=== PATIENT | female | born 1980 | race Caucasian/White ===

== ENCOUNTER → 2017-06-21 | Outpatient (CLI) | payer OTHER | LOC: HPND 09:10 | PROVIDERS: ATTEND Obstetrics & Gynecology | DX: O09.523 Supervision of elderly multigravida, third trimester (principal); O34.219 Maternal care for unspecified type scar from previous cesarean delivery; O99.213 Obesity complicating pregnancy, third trimester; Z68.41 Body mass index [BMI] 40.0-44.9, adult; E66.01 Morbid (severe) obesity due to excess calories | CPT/HCPCS: 76811 ==

== ENCOUNTER → 2017-07-31 | Outpatient (CLI) | payer OTHER ==
[~2017-07-31] MED LIST: PREN1CAP PO
== END ==
LOC: HPND 08:22
PROVIDERS: ATTEND Obstetrics & Gynecology
DX: O09.523 Supervision of elderly multigravida, third trimester (principal); O99.213 Obesity complicating pregnancy, third trimester; E66.01 Morbid (severe) obesity due to excess calories; Z68.41 Body mass index [BMI] 40.0-44.9, adult
CPT/HCPCS: 76816

== ENCOUNTER 2017-09-06 08:40 | Inpatient (IN) | payer OTHER ==
[~2017-09-06] VITALS: Ht 162.6 cm; Wt 138.0 kg
[2017-09-06] VITALS (10 sets, daily range): BP systolic 103–125; BP diastolic 56–70; PULSE 77–97; RESP 16–20; TEMP 97.6–99.1; O2SAT 98–100
[2017-09-06] MEDS ORDERED: LACTATED RINGER'S 1000 ML INJ 1,000 ML IV ONE ×2 (09:28→12:00)
--- NOTE | 2017-09-06 09:29 | HHI.HP ---
HPI Chief Complaint Scheduled Date Seen: Sep 06, 2017 Travel History International Travel<30 Days: No Contact w/Intl Traveler<30Days: No History of Present Illness HPI Ms. Rashid is a 36 y/o at 39/0 weeks gestation presenting for her repeat C- section. Patient denies any complications during . Per chart review, patient has [facility], however has not been seen since 05/30/17. Patient does state that she was seen once in July. She refused multiple studies during her . Patient also has a history of opiate use not during . Most recent US completed on 08/24/17 with OB diagnostics recommending pre-eclampsia work up due to elevated BP, however patient did not comply with recommendations. Patient endorses narcotic use with multiple oral substances throughout . She last used 4 tabs of 5mg Percocet yesterday. She also endorses marijuana use unknowingly throughout the . Otherwise she has no complaints and denies any fevers, chills, SOB, chest pain, NVD, ABD pain, or calf tenderness. Weeks Gestation: 39 Para: 1 : 2 History Past Medical History Medical History: Denies Significant Hx Obstetric History Obstetric History -Full term uncomplicated Past Surgical History Narrative Surgical Appendectomy Family History Narrative Family History No FMHx reported Social History Narrative Social History Patient does not report any alcohol history Patient has been smoking 1/2 ppd during Patient has been using oral narcotics throughout that are not prescribed. Last used 4 tabs of 5mg Percocet yesterday. Also endorses marijuana use during . Allergies-Medications (Allergen,Severity, Reaction): Coded Allergies: No Known Allergies (Verified Adverse Reaction, Unknown, 08/02/17) Home Meds Active Scripts Vit W/ Fe Polysacch C (Vitafol Ultra 29-0.6-0.4-200 mg) 29 Mg Iron-1 Mg -200 Mg Cap, 1 TAB PO DAILY, #30 BOTTLE 11 Refills Prov:Loan Thorne 08/02/17 Review of Systems Except as stated in HPI: all other systems reviewed are Neg (Per HPI) Physical Exam Narrative GENERAL: Obese female laying in bed appears uncomfortable, but in NAD. SKIN: Warm and dry. HEAD: Normocephalic and atraumatic. EYES: No scleral icterus. No injection or drainage. ENT: No nasal drainage noted. Mucous membranes pink. Airway patent. NECK: Supple, trachea midline. No JVD. CARDIOVASCULAR: Regular rate and rhythm without murmurs, gallops, or rubs. RESPIRATORY: Breath sounds equal bilaterally. No accessory muscle use. BREASTS: Bilateral exam showed no masses , no retractions, no nipple discharge. ABDOMEN/GI: Abdomen soft, non-tender, bowel sounds present, no rebound, no guarding Gravid to 39 weeks size FHT's: Category: 1 Baseline: 140s Reactive: Positive Variability: Moderate Decels: None EXTREMITIES: No cyanosis or edema. Patient with mild tremor. BACK: Nontender without obvious deformity. No CVA tenderness. NEUROLOGICAL: Awake and alert. Motor and sensory grossly within normal limits. Five out of 5 muscle strength in all muscle groups. Normal speech. Caprini VTE Risk Assessment Caprini VTE Risk Assessment: Mod/High Risk (score >= 2) Caprini Risk Assessment Model Point Value = 1 Point Value = 2 Point Value = 3 Point Value = 5 Age 41-60 Minor surgery BMI > 25 kg/m2 Swollen legs Varicose veins or History of unexplained or recurrent spontaneous Oral contraceptives or hormone replacement Sepsis (< 1 month) Serious lung disease, including pneumonia (< 1 month) Abnormal pulmonary function Acute myocardial infarction Congestive heart failure (< 1 month) History of inflammatory bowel disease Medical patient at bed rest Age 61-74 Arthroscopic surgery Major open surgery (> 45 min) Laparoscopic surgery (> 45 min) Malignancy Confined to bed (> 72 hours) Immobilizing plaster cast Central venous access Age >= 75 History of VTE Family history of VTE Factor V Leiden Prothrombin 44004K Lupus anticoagulant Anticardiolipin antibodies Elevated serum homocysteine Heparin-induced thrombocytopenia Other congenital or acquired thrombophilia Stroke (< 1 month) Elective arthroplasty Hip, pelvis, or leg fracture Acute spinal cord injury (< 1 month) Prophylaxis Regimen Total Risk Factor Score Risk Level Prophylaxis Regimen 0-1 Low Early ambulation 2 Moderate Order ONE of the following: *Sequential Compression Device (SCD) *Heparin 5000 units SQ BID 3-4 Higher Order ONE of the following medications: *Heparin 5000 units SQ TID *Enoxaparin/Lovenox 40 mg SQ daily (WT < 150 kg, CrCl > 30 mL/min) *Enoxaparin/Lovenox 30 mg SQ daily (WT < 150 kg, CrCl > 10-29 mL/min) *Enoxaparin/Lovenox 30 mg SQ BID (WT < 150 kg, CrCl > 30 mL/min) AND/OR *Sequential Compression Device (SCD) 5 or more Highest Order ONE of the following medications: *Heparin 5000 units SQ TID (Preferred with Epidurals) *Enoxaparin/Lovenox 40 mg SQ daily (WT < 150 kg, CrCl > 30 mL/min) *Enoxaparin/Lovenox 30 mg SQ daily (WT < 150 kg, CrCl > 10-29 mL/min) *Enoxaparin/Lovenox 30 mg SQ BID (WT < 150 kg, CrCl > 30 mL/min) AND *Sequential Compression Device (SCD) Data Data Vital Signs Reviewed: Yes Orders Orders Admit To Inpatient (09/06/17 ) Code Status (09/06/17 09:28) Vital Signs (Adult) .ON ADMISSION (09/06/17 09:28) Activity Oob Ad Cassia (09/06/17 09:28) Heart (09/06/17 09:28) Urinary Catheter Management JAS.Q8H (09/06/17 09:28) ^ Preps (09/06/17 09:28) Scd / Dru / Foot Pump JAS.QSHIFT (09/06/17 09:28) ^ Ultrasound For Locatio (09/06/17 09:28) Diet Npo (09/06/17 Breakfast) Lactated Ringer's 1000 Ml Inj (Lr 1000 M (09/06/17 09:28) Lactated Ringer's 1000 Ml Inj (Lr 1000 M (09/06/17 09:58) Cefazolin 2 Gm Premix (Ancef 2 Gm Premix (09/06/17 10:30) Citric Acid-Sodium Citrate Liq (Bicitra (09/06/17 11:00) Type And Screen (09/06/17 09:28) Complete Blood Count With Diff (09/06/17 09:28) Urinalysis - C+S If Indicated (09/06/17 09:28) Drug Screen, Random Urine (09/06/17 09:28) Inpatient Certification (09/06/17 ) Specimen To Be Collected PRN (09/06/17 09:28) Specimen To Be Collected PRN (09/06/17 09:28) Assessment/Plan Problem List: (1) 39 weeks gestation of ICD Codes: Z3A.39 - 39 weeks gestation of Status: Acute Assessment and Plan Ms. Rashid is a 36 y/o presenting at 39w for her repeat 1. IUP at 39 weeks gestation -Continue routine antepartum care -Patient has been NPO since midnight - orders placed -FHT category 1, reassuring 2. History of Drug Abuse -Continue to monitor; High risk for withdrawal; Team to make neonatology aware -Last used a total of 20mg of Percocet 09/05/17 -UDS ordered DW: Dr. Butcher Discharge Planning Pending clinical course Isael Edward MD R2 Sep 06, 2017 09:29
[2017-09-06] MEDS ORDERED: LACTATED RINGER'S 1000 ML INJ 1,000 ML IV SCH ×2 (09:58→17:33)
[2017-09-06] MEDS ORDERED: ACETAMINOPHEN 1000 MG/100 ML 100 ML IV ONE (10:24)
[2017-09-06] MEDS ORDERED: MIDAZOLAM HCL 2 MG/2 ML VIAL ONE (10:24)
[2017-09-06] MEDS ORDERED: MORPHINE SULFATE PF 5 MG/10 ML VIAL ONE (10:24)
[2017-09-06] MEDS ORDERED: ceFAZolin 2 GM PREMIX 50 ML IV SCH (10:30)
[2017-09-06 10:54] LABS: BASOPHIL % 0.4 % (0.0-2.0); EOSINOPHIL # 0.1 TH/MM3 (0-0.4); EOSINOPHIL % 0.8 % (0.0-4.0); HEMATOCRIT 34.6 % (35.0-46.0); HEMOGLOBIN 11.8 GM/DL (11.6-15.3); LYMPH % 17.6 % (9.0-44.0); LYMPHOCYTE # 1.7 TH/MM3 (1.0-4.8); MEAN CELL VOLUME 86.2 FL (80.0-100.0); MEAN CORPUSCULAR HEMOGLOBIN 29.3 PG (27.0-34.0); MEAN PLATELET VOLUME 8.5 FL (7.0-11.0); MONOCYTE # 0.7 TH/MM3 (0-0.9); NEUT % 74.2 % (16.0-70.0); PLATELET COUNT 360 TH/MM3 (150-450); RED BLOOD COUNT 4.01 MIL/MM3 (4.00-5.30); RED CELL DISTRIBUTION WIDTH 14.7 % (11.6-17.2); WHITE BLOOD COUNT 9.4 TH/MM3 (4.0-11.0)
[2017-09-06] MEDS ORDERED: CITRIC ACID-SODIUM CITRATE LIQ 30 ML UDC PO SCH (11:00)
[2017-09-06 11:02] LABS: BACTERIA, URINE MANY /hpf; BILIRUBIN, URINE NEG (NEG); BLOOD, URINE NEG (NEG); GLUCOSE,URINE NEG (NEG); KETONE, URINE NEG (NEG); MUCUS URINE FEW /lpf (OCC); NITRITE,URINE NEG (NEG); PH, URINE 6.5 (5.0-8.5); SQUAMOUS EPITHELIAL CELL URINE 16 /hpf (0-5); URINE COLOR YELLOW (YELLW/STRAW); URINE LEUKOCYTE ESTERASE SMALL (NEG)
[2017-09-06] MEDS ORDERED: EPIDURAL-DO NOT ADMINISTER ANTICOAGULANTS PRN (11:20)
[2017-09-06] MEDS ORDERED: EPIDURAL-DIPHENHYDRAMINE HCL 50 MG CAP PO PRN (11:20)
[2017-09-06] MEDS ORDERED: EPIDURAL-DIPHENHYDRAMINE HCL 50 MG/ML VIAL IV PUSH PRN (11:20)
[2017-09-06] MEDS ORDERED: EPIDURAL-NALOXONE HCL 0.4 MG/ML AMP IV PUSH PRN (11:20)
[2017-09-06] MEDS ORDERED: EPIDURAL-NO SYSTEMIC NARCOTICS PRN (11:20)
[2017-09-06] MEDS ORDERED: ePHEDrine/NS 25 MG/5 ML SYRINGE ONE (11:35)
[2017-09-06] MEDS ORDERED: OXYTOCIN 10 UNIT/ML AMP IV ONE (12:00)
[2017-09-06] MEDS ORDERED: ePHEDrine/NS 25 MG/5 ML SYRINGE IV ONE (12:00)
[2017-09-06] MEDS ORDERED: ONDANSETRON HCL 4 MG/2 ML VIAL IV ONE (12:00)
[2017-09-06] MEDS ORDERED: DEXAMETHASONE SOD PHOS 4 MG/ML VIAL IV ONE (12:00)
--- NOTE | 2017-09-06 12:34 | PD.OP ---
Operative Report Date of Surgery: Sep 06, 2017 Preoperative Diagnosis: Postoperative Diagnosis: Procedure: Repeat Low Transverse Section Anesthesia: Spinal Surgeon: Brooke Butcher MD Willow Analyst(s): Margy Meyers Resident Surgeon: Lana Ellison R3 Operation and Findings: PREOPERATIVE DIAGNOSIS 1. 39 weeks gestation 2. Repeat Section. 3. Bilateral Tubal Ligation 4. Narcotic abuse during POSTOPERATIVE DIAGNOSIS 1. 39 weeks gestation. 2. Repeat Section. 3. Bilateral Tubal Ligation 4. Narcotic abuse during . PROCEDURE Repeat low transverse section. SURGEON Dr. Brooke Butcher and Dr. Lana Ellison R3 FINDINGS A normal viable female infant weight 3250g and Apgars 8/9. Normal fallopian tubes, ovaries, and uterus. COMPLICATIONS None COUNTS Correct ESTIMATED BLOOD LOSS 750 cc FLUIDS Crystalloids CONDITION The patient tolerated the procedure well and went to the PACU for recovery in good condition. PROCEDURE IN DETAIL The patient was taken to the operating room, identified by name band and verbally. The time out was done and patient was prepped and draped in the usual sterile fashion for section. A Pfannenstiel incision was made at the site of the previous incision then carried down to the fascia. The fascia was taken off the rectus muscle by blunt and sharp dissection. The rectus muscles were spread bluntly and the peritoneum entered under direct vision without difficulty. The incision was extended and adhesions were taken down. An Vadim retractor was placed and a bladder flap was created. The uterus was incised transversely along the lower uterine segment. Once the uterine cavity was entered, clear fluid was noted. The head was grasped and fundal pressure was applied followed by uncomplicated delivery of the head. A nuchal cord x 1 was reduced and the rest of the body was delivered without difficulty. Cord clamping was delayed for 45 seconds before the cord was doubly clamped and cut and the baby was handed to the baby nurse. The cord blood was obtained and the placenta was delivered manually. The uterus was curettaged with a wet lap. The uterine incision was repaired with 1.0 chromic in a running locking fashion. Hemostasis was excellent. The tubal ligation was then performed. The left fallopian tube was grasped and elevated with a Galen clamp. A hemostat was passed through the mesosalpinx and two catgut sutures were pulled through the window made in the mesosalpinx. The tube was tied fore and aft. The intervening segment of tube was removed and sent to pathology. The same was done on the opposite side without difficulty. Once this had been accomplished, all incisions were carefully inspected. The gutters were cleaned of blood and debris. The muscle was closed in an interrupted fashion with a 1.0 chromic. The fascia was repaired with 1.0 PDS in a running fashion bilaterally. The subcuticular layer was repaired with plain gut. The skin was then repaired with a 3-0 Monocryl in a subcuticular fashion. The wound was sterilely dressed with a Molnlycke dressing. The patient tolerated the procedure well and went to PACU for recovery in good condition. Lana Ellison MD, R3 Sep 06, 2017 12:34
[2017-09-06] MEDS ORDERED: oxyCODONE/ACETAMINOPHEN 5 MG/325 MG TAB PO PRN (12:45)
[2017-09-06] MEDS ORDERED: ZOLPIDEM TARTRATE 5 MG TAB PO PRN (12:45)
[2017-09-06] MEDS ORDERED: SIMETHICONE 80 MG CHEWABLE TAB PO PRN (12:45)
[2017-09-06] MEDS ORDERED: ONDANSETRON HCL 4 MG/2 ML VIAL IV PUSH PRN (12:45)
[2017-09-06] MEDS ORDERED: KETOROLAC TROMETHAMINE 60 MG/2 ML (IM) VIAL IM PRN ×2 (12:45)
[2017-09-06] MEDS ORDERED: SODIUM CHLORIDE 0.9% FLUSH 10 ML FLUSH IV FLUSH PRN (12:45)
[2017-09-06] MEDS ORDERED: ACETAMINOPHEN 325 MG TAB PO PRN (12:45)
[2017-09-06] MEDS ORDERED: OXYTOCIN 30 UNITS-500ML PREMIX 500 ML IV ONE (12:45)
[2017-09-06] MEDS ORDERED: HYDROmorphone HCL PF 2 MG/ML VIAL ONE (13:16)
[2017-09-06] MEDS ORDERED: OXYTOCIN 30 UNITS-500ML PREMIX 500 ML ONE (13:17)
[2017-09-06] MEDS: HYDROmorphone HCL PF 2 MG/ML VIAL IV PRN ×4 (13:22→13:41)
[2017-09-06] MEDS ORDERED: RESP: ALBUTEROL 2.5 MG/3 ML NEB (PRN) NEB (16:00)
[2017-09-06] MEDS: guaiFENesin E.R. 600 MG TAB PO SCH (20:43)
[2017-09-06] MEDS: oxyCODONE/ACETAMINOPHEN 5 MG/325 MG TAB PO PRN (20:45)
[2017-09-06] MEDS ORDERED: SODIUM CHLORIDE 0.9% FLUSH 10 ML FLUSH IV FLUSH SCH (21:00)
[2017-09-06] MEDS ORDERED: OXYTOCIN 30 UNITS-500ML PREMIX 500 ML IV PRN (22:45)
[2017-09-07 00:30] VITALS: BP 111/68; PULSE 86; RESP 18; TEMP 98.3
[2017-09-07] MEDS: IBUPROFEN 600 MG TAB PO PRN ×4 (00:31→23:57)
[2017-09-07] MEDS: oxyCODONE/ACETAMINOPHEN 5 MG/325 MG TAB PO PRN ×6 (00:31→21:56)
[2017-09-07] MEDS: DOCUSATE SODIUM 50 MG/SENNA 8.6 MG TAB PO PRN (04:28)
[2017-09-07 04:30] VITALS: BP 111/67; PULSE 81; RESP 20; TEMP 97.7
[2017-09-07 05:57] LABS: AUTOMATED NEUTROPHIL # 6.9 TH/MM3 (1.8-7.7); BASOPHIL % 0.4 % (0.0-2.0); EOSINOPHIL # 0.1 TH/MM3 (0-0.4); EOSINOPHIL % 0.7 % (0.0-4.0); HEMATOCRIT 30.5 % (35.0-46.0); HEMOGLOBIN 10.3 GM/DL (11.6-15.3); LYMPH % 16.2 % (9.0-44.0); LYMPHOCYTE # 1.5 TH/MM3 (1.0-4.8); MEAN CELL VOLUME 86.7 FL (80.0-100.0); MEAN CORPUSCULAR HEMOGLOBIN 29.2 PG (27.0-34.0); MEAN CORPUSCULAR HGB CONC 33.7 % (32.0-36.0); MONO % 8.6 % (0.0-8.0); MONOCYTE # 0.8 TH/MM3 (0-0.9); NEUT % 74.1 % (16.0-70.0); PLATELET COUNT 326 TH/MM3 (150-450); RED BLOOD COUNT 3.52 MIL/MM3 (4.00-5.30); RED CELL DISTRIBUTION WIDTH 14.9 % (11.6-17.2); WHITE BLOOD COUNT 9.4 TH/MM3 (4.0-11.0)
--- NOTE | 2017-09-07 07:52 | HHI.OB ---
Subjective Post Operative Day: 1 Remarks Pt seen and examined this morning. Postoperative day # 1 AFVSS overnight. Incision nondraining. Decreased lochia. Denies dysuria. No breast tenderness. She is feeding the baby via bottle. Appetite good. No nausea or vomiting. Patient has not yet had a bowel movement, but does endorse bowel gas. Ambulating well. Denies calf pain or shortness of breath. Otherwise, she is doing well this morning and has no other concerns. Objective Vitals/I&O Vital Signs Date Time Temp Pulse Resp B/P (MAP) Pulse Ox O2 Delivery O2 Flow Rate FiO2 09/07/17 04:30 97.7 81 20 111/67 (82) 09/07/17 00:30 98.3 86 18 111/68 (82) 09/06/17 20:00 98.4 09/06/17 20:00 90 18 119/66 (83) 98 09/06/17 17:45 99.1 88 18 115/65 (82) 09/06/17 14:26 97.8 77 20 123/69 (87) 09/06/17 13:30 88 18 115/60 (78) 98 09/06/17 13:28 97.6 09/06/17 13:15 113/56 (75) 09/06/17 13:15 80 18 100 09/06/17 13:00 100 09/06/17 13:00 91 16 116/56 (76) 09/06/17 12:45 97.7 09/06/17 12:45 97 18 103/59 (74) 100 09/06/17 09:00 98.0 09/06/17 08:57 97 125/70 (88) Result Diagram: 09/07/17 0520 Objective Remarks GENERAL: Well-nourished, well-developed patient. CARDIOVASCULAR: Regular rate and rhythm without murmurs, gallops, or rubs. RESPIRATORY: Breath sounds equal bilaterally. No accessory muscle use. ABDOMEN/GI: Abdomen soft, non-tender, bowel sounds present. Incision: Clean, dry and intact. Fundus: Firm, non-tender at umbilicus. GENITOURINARY: Light to moderate bleeding. EXTREMITIES: No cyanosis, non-tender, without signs of DVT. Patient has mild edema bilateral lower extremities that is nonpitting, stable from prior exam. Medications and IVs Current Medications Medications (Trade) Dose Ordered Sig/Kacie Route Start Time Stop Time Status Last Admin Lactated Ringer's 1,000 ml @ 100 mls/hr Q10H IV 09/06/17 17:33 09/07/17 13:32 Oxytocin 500 ml @ 100 mls/hr UNSCH X1 PRN IV 09/06/17 22:45 09/07/17 22:44 (NS Flush) 2 ml BID IV FLUSH 09/06/17 21:00 (NS Flush) 2 ml UNSCH PRN IV FLUSH 09/06/17 12:45 (Mylicon Chew) 80 mg QID PRN PO 09/06/17 12:45 (Tylenol) 650 mg Q6H PRN PO 09/06/17 12:45 (Motrin) 600 mg Q6H PRN PO 09/06/17 12:45 09/07/17 00:31 (Toradol Inj) 60 mg UNSCH X1 PRN IM 09/06/17 12:45 09/07/17 12:44 09/06/17 16:39 (Toradol Inj) 30 mg Q6H PRN IM 09/06/17 12:45 09/07/17 12:44 (Percocet 5-325 Mg) 1 tab Q4H PRN PO 09/06/17 12:45 (Percocet 5-325 Mg) 2 tab Q4H PRN PO 09/06/17 12:45 09/07/17 04:27 (Cee-Colace) 2 tab Q12H PRN PO 09/06/17 12:45 09/07/17 04:28 (Ambien) 5 mg HS PRN PO 09/06/17 12:45 (M-M-R Ii Inj) 0.5 ml ONCE ONCE SQ 09/07/17 16:00 09/07/17 16:01 (Boostrix Inj) 0.5 ml ONCE ONCE IM 09/07/17 16:00 09/07/17 16:01 (Zofran Inj) 4 mg Q6H PRN IV PUSH 09/06/17 12:45 Miscellaneous Information NO SYSTEMIC NARCOTICS TO BE GIVEN FO... UNSCH PRN .XX 09/06/17 11:20 09/07/17 11:19 (Narcan Inj) 0.4 mg UNSCH PRN IV PUSH 09/06/17 11:20 09/07/17 11:19 (Benadryl Inj) 25 mg Q6H PRN IV PUSH 09/06/17 11:20 09/07/17 11:19 (Benadryl) 50 mg Q6H PRN PO 09/06/17 11:20 09/07/17 11:19 Miscellaneous Information ALL NURSING DEPARTMENTS UNSCH PRN .XX 09/06/17 11:20 09/07/17 11:19 (Mucinex Er) 600 mg BID PO 09/06/17 21:00 09/06/17 20:43 (Albuterol Neb) 2.5 mg Q4HR NEB PRN NEB 09/06/17 16:00 Assessment/Plan Problem List: (1) 39 weeks gestation of ICD Codes: Z3A.39 - 39 weeks gestation of Status: Acute (2) Single delivery by ICD Codes: O82 - Encounter for delivery without indication Status: Acute Assessment and Plan 36 y/o female who is postoperative day # 1 s/p . -Continue routine care. -Postoperative H/H 10.3/30.5 -Percocet and Motrin PRN pain. -Encouraged OOB. Advised pelvic rest for 6 wks. and will need follow-up appointment in 1-2 weeks for incision check. -Patient with history of drug abuse continue to monitor; High risk for withdrawal, Last used a total of 20mg of Percocet 09/05/17 -UDS positive for opiates, otherwise negative -Patient is status post bilateral tubal ligation, no need for continued control. -Anticipate discharge in 1-2 days pending clinical course. kenzie Butcher MD Discharge Planning In 1-2 days pending clinical course Isael Edward MD R2 Sep 07, 2017 07:52
[2017-09-07 08:00] VITALS: BP 109/69; PULSE 80; RESP 22; TEMP 97.9
[2017-09-07] MEDS: guaiFENesin E.R. 600 MG TAB PO SCH ×2 (09:20→22:18)
[2017-09-07] MEDS ORDERED: DIPHTH/TETANUS/ACEL PERTUSSIS (BOOSTER) 0.5 ML VIAL/PFS IM ONE (16:00)
[2017-09-07] MEDS ORDERED: MEASLES, MUMPS, RUBELLA VACCINE 0.5 ML VIAL SQ ONE (16:00)
[2017-09-07 19:00] VITALS: BP 121/69; PULSE 76; RESP 18; TEMP 98
[2017-09-08] MEDS: oxyCODONE/ACETAMINOPHEN 5 MG/325 MG TAB PO PRN ×5 (04:12→20:52)
[2017-09-08] MEDS: IBUPROFEN 600 MG TAB PO PRN ×3 (06:34→20:52)
[2017-09-08 08:00] VITALS: BP 110/74; PULSE 73; RESP 18; TEMP 98.1
--- NOTE | 2017-09-08 08:15 | HHI.OB ---
Subjective Post Operative Day: 2 Remarks Pt seen and examined this morning. Postoperative day # 2 AFVSS overnight. Incision nondraining. Decreased lochia. Denies dysuria. No breast tenderness. She is feeding the baby via bottle. Appetite good. No nausea or vomiting. Patient endorses having a bowel movement and continues to pass bowel gas. Ambulating well. Denies calf pain or shortness of breath. Otherwise, she is doing well this morning and has no other concerns. Objective Vitals/I&O Vital Signs Date Time Temp Pulse Resp B/P (MAP) Pulse Ox O2 Delivery O2 Flow Rate FiO2 09/07/17 19:00 76 121/69 (86) 09/07/17 19:00 98.0 18 Result Diagram: 09/07/17 0520 Objective Remarks GENERAL: Well-nourished, well-developed patient. CARDIOVASCULAR: Regular rate and rhythm without murmurs, gallops, or rubs. RESPIRATORY: Breath sounds equal bilaterally. No accessory muscle use. ABDOMEN/GI: Abdomen soft, non-tender, bowel sounds present. Incision: Clean, dry and intact. Fundus: Firm, non-tender at umbilicus. GENITOURINARY: Light to moderate bleeding. EXTREMITIES: No cyanosis, non-tender, without signs of DVT. Patient has mild edema bilateral lower extremities that is nonpitting, stable from prior exam. Medications and IVs Current Medications Medications (Trade) Dose Ordered Sig/Kacie Route Start Time Stop Time Status Last Admin (NS Flush) 2 ml BID IV FLUSH 09/06/17 21:00 (NS Flush) 2 ml UNSCH PRN IV FLUSH 09/06/17 12:45 (Mylicon Chew) 80 mg QID PRN PO 09/06/17 12:45 (Tylenol) 650 mg Q6H PRN PO 09/06/17 12:45 (Motrin) 600 mg Q6H PRN PO 09/06/17 12:45 09/08/17 06:34 (Percocet 5-325 Mg) 1 tab Q4H PRN PO 09/06/17 12:45 (Percocet 5-325 Mg) 2 tab Q4H PRN PO 09/06/17 12:45 09/08/17 04:12 (Cee-Colace) 2 tab Q12H PRN PO 2/21/18 12:45 09/07/17 04:28 (Ambien) 5 mg HS PRN PO 09/06/17 12:45 (Zofran Inj) 4 mg Q6H PRN IV PUSH 09/06/17 12:45 (Mucinex Er) 600 mg BID PO 09/06/17 21:00 09/07/17 22:18 (Albuterol Neb) 2.5 mg Q4HR NEB PRN NEB 09/06/17 16:00 Assessment/Plan Problem List: (1) 39 weeks gestation of ICD Codes: Z3A.39 - 39 weeks gestation of Status: Acute (2) Single delivery by ICD Codes: O82 - Encounter for delivery without indication Status: Acute Assessment and Plan 36 y/o female who is postoperative day #2 s/p . -Continue routine care. -Postoperative H/H 10.3/30.5 -Percocet and Motrin PRN pain. -Encouraged OOB. Advised pelvic rest for 6 wks. and will need follow-up appointment in 1-2 weeks for incision check. -Patient with history of drug abuse continue to monitor; High risk for withdrawal, Last used a total of 20mg of Percocet 09/05/17 -UDS positive for opiates, otherwise negative -Patient is status post bilateral tubal ligation, no need for continued control -Anticipate discharge tomorrow pending clinical course. kenzie Hair MD Discharge Planning Tomorrow pending clinical course. Isael Edward MD R2 Sep 08, 2017 08:15
[2017-09-08] MEDS: guaiFENesin E.R. 600 MG TAB PO SCH ×2 (08:32→20:52)
[2017-09-08] MEDS: DOCUSATE SODIUM 50 MG/SENNA 8.6 MG TAB PO PRN (16:55)
[2017-09-08 21:00] VITALS: BP 116/71; PULSE 83; RESP 18; TEMP 99.3
[2017-09-09] MEDS ORDERED: PERI PO (00:12)
[2017-09-09] MEDS ORDERED: IBUP-232 PO (00:12)
[2017-09-09] MEDS ORDERED: OXYC1TAB63 PO (00:12)
--- NOTE | 2017-09-09 00:12 | HHI.DCPOC ---
Discharge Care Plan Diagnosis: (1) Single delivery by Report Symptoms to Your Doctor -Temperature above 100.5 degrees -Redness, of incision or excessive or foul smelling drainage -Unusual pain or calf pain -Increased vaginal bleeding -Painful or difficulty urinating -Feelings of extreme sadness or anxiety after 2 weeks Goals to Promote Your Health * To prevent worsening of your condition and complications * To maintain your health at the optimal level Directions to Meet Your Goals Take your medications as prescribed Follow your dietary instruction Follow activity as directed Ensure plenty of rest for recovery Drink fluids for hydration Keep your appointments as scheduled Take your immunizations and boosters as scheduled If your symptoms worsen call your PCP, if no PCP go to Urgent Care Center or Emergency Room Smoking is Dangerous to Your Health. Avoid second hand smoke Call the 24-hour crisis hotline for domestic abuse at Isael Edward MD R2 Sep 09, 2017 00:12
[2017-09-09] MEDS: IBUPROFEN 600 MG TAB PO PRN ×2 (02:42→08:57)
[2017-09-09] MEDS: oxyCODONE/ACETAMINOPHEN 5 MG/325 MG TAB PO PRN (02:42)
--- NOTE | 2017-09-09 07:20 | HHI.OB ---
Subjective Post Operative Day: 3 Objective Vitals/I&O Vital Signs Date Time Temp Pulse Resp B/P (MAP) Pulse Ox O2 Delivery O2 Flow Rate FiO2 09/08/17 21:00 99.3 83 18 116/71 (86) 09/08/17 08:00 98.1 73 18 110/74 (86) Result Diagram: 09/07/17 0520 Objective Remarks GENERAL: Well-nourished, well-developed patient. CARDIOVASCULAR: Regular rate and rhythm without murmurs, gallops, or rubs. RESPIRATORY: Breath sounds equal bilaterally. No accessory muscle use. ABDOMEN/GI: Abdomen soft, non-tender, bowel sounds present. Incision: Clean, dry and intact. Fundus: Firm, non-tender at umbilicus. GENITOURINARY: Light to moderate bleeding. EXTREMITIES: No cyanosis, non-tender, without signs of DVT. Patient has mild edema bilateral lower extremities that is nonpitting, stable from prior exam. Medications and IVs Current Medications Medications (Trade) Dose Ordered Sig/Kacie Route Start Time Stop Time Status Last Admin (NS Flush) 2 ml BID IV FLUSH 09/06/17 21:00 (NS Flush) 2 ml UNSCH PRN IV FLUSH 09/06/17 12:45 (Mylicon Chew) 80 mg QID PRN PO 09/06/17 12:45 (Tylenol) 650 mg Q6H PRN PO 09/06/17 12:45 (Motrin) 600 mg Q6H PRN PO 09/06/17 12:45 09/09/17 02:42 (Percocet 5-325 Mg) 1 tab Q4H PRN PO 09/06/17 12:45 (Percocet 5-325 Mg) 2 tab Q4H PRN PO 09/06/17 12:45 09/09/17 02:42 (Cee-Colace) 2 tab Q12H PRN PO 09/06/17 12:45 09/08/17 16:55 (Ambien) 5 mg HS PRN PO 09/06/17 12:45 (Zofran Inj) 4 mg Q6H PRN IV PUSH 09/06/17 12:45 (Mucinex Er) 600 mg BID PO 09/06/17 21:00 09/08/17 20:52 (Albuterol Neb) 2.5 mg Q4HR NEB PRN NEB 09/06/17 16:00 Assessment/Plan Problem List: (1) 39 weeks gestation of ICD Codes: Z3A.39 - 39 weeks gestation of Status: Acute (2) Single delivery by ICD Codes: O82 - Encounter for delivery without indication Status: Acute Assessment and Plan 36 y/o female who is postoperative day # 1 s/p . -Continue routine care. -Postoperative H/H 10.3/30.5 -Percocet and Motrin PRN pain. -Encouraged OOB. Advised pelvic rest for 6 wks. and will need follow-up appointment in 1-2 weeks for incision check. -Patient with history of drug abuse continue to monitor; High risk for withdrawal, Last used a total of 20mg of Percocet 09/05/17 -UDS positive for opiates, otherwise negative -Patient is status post bilateral tubal ligation, no need for continued control. -Anticipate discharge in 1-2 days pending clinical course. kenzie Butcher MD Discharge Planning Tomorrow pending clinical course. Isael Edward MD R2 Sep 09, 2017 07:20
[2017-09-09 08:00] VITALS: BP 139/79; PULSE 113; RESP 18; TEMP 98.1
--- NOTE | 2017-09-09 08:18 | HHI.OB ---
Subjective Post Operative Day: 3 Remarks Pt seen and examined this morning. Postoperative day # 3 AFVSS overnight. Incision not draining. Decreased lochia. Denies dysuria. No breast tenderness. She is feeding the baby via bottle. Appetite good. No nausea or vomiting. Patient endorses having a bowel movement and continues to pass bowel gas. Ambulating well. Denies calf pain or shortness of breath. Otherwise, she is doing well this morning and has no other concerns. Objective Vitals/I&O Vital Signs Date Time Temp Pulse Resp B/P (MAP) Pulse Ox O2 Delivery O2 Flow Rate FiO2 09/08/17 21:00 99.3 83 18 116/71 (86) Result Diagram: 09/07/17 05 Objective Remarks GENERAL: Well-nourished, well-developed patient. CARDIOVASCULAR: Regular rate and rhythm without murmurs, gallops, or rubs. RESPIRATORY: Clear to auscultation bilaterally with no CRW. No increased work of breathing. ABDOMEN/GI: Abdomen soft, non-tender, bowel sounds present. Incision: Clean, dry and intact. Fundus: Firm, non-tender at umbilicus. GENITOURINARY: Light to moderate bleeding. EXTREMITIES: No cyanosis, non-tender, without signs of DVT. Patient has bilateral LE edema that is nonpitting, stable from prior exam. Medications and IVs Current Medications Medications (Trade) Dose Ordered Sig/Kacie Route Start Time Stop Time Status Last Admin (NS Flush) 2 ml BID IV FLUSH 09/06/17 21:00 (NS Flush) 2 ml UNSCH PRN IV FLUSH 09/06/17 12:45 (Mylicon Chew) 80 mg QID PRN PO 09/06/17 12:45 (Tylenol) 650 mg Q6H PRN PO 09/06/17 12:45 (Motrin) 600 mg Q6H PRN PO 09/06/17 12:45 09/09/17 02:42 (Percocet 5-325 Mg) 1 tab Q4H PRN PO 09/06/17 12:45 (Percocet 5-325 Mg) 2 tab Q4H PRN PO 09/06/17 12:45 09/09/17 02:42 (Cee-Colace) 2 tab Q12H PRN PO 09/06/17 12:45 09/08/17 16:55 (Ambien) 5 mg HS PRN PO 09/06/17 12:45 (Zofran Inj) 4 mg Q6H PRN IV PUSH 09/06/17 12:45 (Mucinex Er) 600 mg BID PO 09/06/17 21:00 09/08/17 20:52 (Albuterol Neb) 2.5 mg Q4HR NEB PRN NEB 09/06/17 16:00 Assessment/Plan Problem List: (1) 39 weeks gestation of ICD Codes: Z3A.39 - 39 weeks gestation of Status: Acute (2) Single delivery by ICD Codes: O82 - Encounter for delivery without indication Status: Acute Assessment and Plan 36 y/o female who is postoperative day # 3 s/p . -Continue routine care. -Postoperative H/H 10.3/30.5 -Encourage patient to ambulate to improve bilateral lower extremity edema as well as keep lower extremities elevated when lying flat. No signs/symptoms of pulmonary edema at this time. -Percocet and Motrin PRN pain. -Encouraged OOB. Advised pelvic rest for 6 wks. and will need follow-up appointment in 1-2 weeks for incision check. -Patient with history of drug abuse continue to monitor; High risk for withdrawal, Last used a total of 20mg of Percocet 09/05/17 -UDS positive for opiates, otherwise negative -Patient is status post bilateral tubal ligation, no need for continued control. -Anticipate discharge today. kenzie Collier MD Discharge Planning Today. Isael Edward MD R2 Sep 09, 2017 08:18
[2017-09-09] MEDS: guaiFENesin E.R. 600 MG TAB PO SCH (08:57)
[2017-09-12] MEDS ORDERED: OXYTOCIN 30 UNITS-500ML PREMIX 500 ML ONE (16:19)
== END 2017-09-09 13:40 | disposition home or self-care (01) | DRG 765 ==
LOC: H2EB 08:40 → H1EA 13:47
PROVIDERS: ADMIT Obstetrics & Gynecology Obstetrics; ATTEND Obstetrics & Gynecology Obstetrics
PROC: 10D00Z1 Extraction of Products of Conception, Low, Open Approach (ICD-10-PCS; principal; 2017-09-06)
PROC: 0UB70ZZ Excision of Bilateral Fallopian Tubes, Open Approach (ICD-10-PCS; 2017-09-06)
DX: O34.211 Maternal care for low transverse scar from previous cesarean delivery (principal); O99.324 Drug use complicating childbirth; O69.81X0 Labor and delivery complicated by cord around neck, without compression, not applicable or unspecified; O99.334 Smoking (tobacco) complicating childbirth; O99.214 Obesity complicating childbirth; F11.10 Opioid abuse, uncomplicated; F12.90 Cannabis use, unspecified, uncomplicated; F17.210 Nicotine dependence, cigarettes, uncomplicated; Z30.2 Encounter for sterilization; Z37.0 Single live birth; Z3A.39 39 weeks gestation of pregnancy
CPT/HCPCS: 59025; 76937; 80307; 81001; 85025; 86850; 86900; 86901; 87086; 88302; 94150; 94667; 94668; G0481; J0131; J0690; J1100; J1170; J1885; J2250; J2274; J2405; J2590; J3010; J7120